=== PATIENT | male | born 1990 | race African-American/Black ===

== ENCOUNTER 2019-03-01 14:08 | Emergency (ER) | payer MEDICAID ==
[~2019-03-01] VITALS: Ht 180.3 cm; Wt 113.4 kg
[2019-03-01 14:52] VITALS: BP 124/68
--- NOTE | 2019-03-01 15:20 | Emergency Room Report ---
History of Present Illness General Chief Complaint: Upper Extremity Injury Source: Patient Present Illness HPI 28-year-old male with no significant past medical history here complaining of 2 days of pain and swelling right hand reports that he might have broken it. Reports that heavy object fell on his hand. Patient reports that has not taken any medication for pain however his sister comes later and reports that patient cannot take ibuprofen or Tylenol they do not work and needs something stronger. Patient refuses to get a shot of Toradol. Patient then refuses to take anything for pain until the results of x-ray are back. Sister keeps answering for patient. Drug-seeking behavior is noted however cures was clear. Denies tingling and numbness at this time. Denies all other injuries. Patient has full range of motion however obvious swelling no bony tenderness of fourth metacarpal bone noted on the right hand. No motor or sensory deficits noted. Radial pulse and ulnar pulse are intact Allergies: Coded Allergies: No Known Allergies (Unverified , 03/01/19) Patient History Past Medical History: see triage record Past Surgical History: unable to obtain Pertinent Family History: none Immunizations: UTD Reviewed Nursing Documentation: PMH: Agreed; PSxH: Agreed Nursing Documentation-PMH Past Medical History: No History, Except For Hx Asthma: Yes Review of Systems All Other Systems: negative except mentioned in HPI Physical Exam Vital Signs Date Time Temp Pulse Resp B/P (MAP) Pulse Ox O2 Delivery O2 Flow Rate FiO2 03/01/19 14:10 97.5 69 20 137/90 (106) 97 Room Air Sp02 EP Interpretation: reviewed, normal General Appearance: no apparent distress, alert, GCS 15, non-toxic Head: normocephalic, atraumatic Eyes: bilateral eye normal inspection, bilateral eye PERRL ENT: hearing grossly normal, normal pharynx, no angioedema, normal voice Neck: full range of motion, supple/symm/no masses Respiratory: chest non-tender, lungs clear, normal breath sounds, no rhonchi, speaking full sentences Cardiovascular #1: regular rate, rhythm, no murmur Cardiovascular #2: 2+ radial (R), 2+ radial (L) Gastrointestinal: normal bowel sounds, non tender, soft, non-distended, no guarding, no rebound Genitourinary: no CVA tenderness Musculoskeletal: back normal, tender - Right fourth metacarpal, swelling - Right fourth and fifth metacarpal Neurologic: alert, motor strength/tone normal, oriented x3, sensory intact, responsive, speech normal Psychiatric: judgement/insight normal, memory normal, mood/affect normal, no suicidal/homicidal ideation Skin: no rash Lymphatic: no adenopathy Procedures Splinting Splinting : Consent: Verbal Location: Right hand Hand-Made Type: plaster Splint: ulnar Pre-Proc Neuro Vasc Exam: normal Post-Proc Neuro Vasc Exam: normal Patient Tolerated: Well Complications: None Progress Sling applied Medical Decision Making PA Attestation All my diagnosis and treatment plans were reviewed ad discussed with my supervising physician Dr. Romo Diagnostic Impression: Primary Impression: Fracture of fourth metacarpal bone of right hand ER Course 28-year-old male with no significant past medical history here complaining of 2 days of pain and swelling right hand reports that he might have broken it. Reports that heavy object fell on his hand. Patient reports that has not taken any medication for pain however his sister comes later and reports that patient cannot take ibuprofen or Tylenol they do not work and needs something stronger. Patient refuses to get a shot of Toradol. Patient then refuses to take anything for pain until the results of x-ray are back. Sister keeps answering for patient. Drug-seeking behavior is noted however cures was clear. Denies tingling and numbness at this time. Denies all other injuries. Patient has full range of motion however obvious swelling no bony tenderness of fourth metacarpal bone noted on the right hand. No motor or sensory deficits noted. Radial pulse and ulnar pulse are intact Ddx considered but are not limited to: Hand sprain, hand sprain, hand fracture Vital signs: are WNL, pt. is afebrile H&PE are most consistent with : Displaced fracture of right fourth metacarpal bone ORDERS: Hand x-ray, very few pills of Tylenol 3, ibuprofen 800 ED INTERVENTIONS: Splint, Tylenol 3, Robaxin DISCHARGE: At this time pt. is stable for d/c to home. Will provide printed patient care instructions, and any necessary prescriptions. Care plan and follow up instructions have been discussed with the patient prior to discharge. Patient to follow-up with rare/endangered species specialist for casting and further assessment. I explained to patient that cannot write any more narcotics at this time patient to follow-up with pain management as well as rare/endangered species specialist. Keep splint on. I discussed the finding of x-ray with over the phone and confirmed that there is a displaced fracture of right fourth metacarpal bone. Patient did not agree to reducing the displaced fracture and want to follow-up with Ortho. Advised patient return to emergency room if worsening symptoms. Other X-Ray Diagnostic Results Other X-Ray Diagnostic Results : X-Ray ordered: Right hand # of Views/Limited Vs Complete: 3 View Indication: Pain EP Interpretation: Yes PA Xray: Interpretation reviewed, by supervising MD, and agrees with findings. Interpretation: no dislocation, other - Displaced fracture right fourth metacarpal bone Impression: Other - Displaced fracture right fourth metacarpal bone Electronically Signed by: Etienne Bella PA-C Last Vital Signs Date Time Temp Pulse Resp B/P (MAP) Pulse Ox O2 Delivery O2 Flow Rate FiO2 03/01/19 14:52 98.1 18 124/68 86 Room Air 03/01/19 14:10 69 Disposition: HOME, SELF-CARE Condition: Stable Scripts Ibuprofen (Ibu) 800 Mg Tablet 800 MG PO TID, #30 TAB Prov: Etienne Kearns 03/01/19 Acetaminophen With Codeine (T#3) (TYLENOL #3 TAB*) Y Tab 1 TAB ORAL Q8HR PRN for For Pain for 2 Days, #6 TAB 0 Refills Prov: Etienne Kearns 03/01/19 Referrals: NON PHYSICIAN (PCP) Patient Instructions: Metacarpal Fracture, [id number] Additional Instructions: Medication as directed, follow-up with your primary care provider, if worsening symptoms return to the emergency room. You need to follow-up with rare/endangered species specialist and only few numbers of controlled substance can be given to you by emergency room in one setting and you need to follow-up with pain management and rare/endangered species specialist and proper casting and further assessment to be done by rare/endangered species specialist. Eteinne Kearns Mar 01, 2019 15:20
[2019-03-01] MEDS ORDERED: IBU800 MG PO (15:22)
[2019-03-01] MEDS ORDERED: ACETAMINOPHEN-1 EAC1 ORAL (15:22)
--- NOTE | 2019-03-01 15:58 | Diagnostic Imaging Report ---
Indication: Trauma, pain Technique: 3 views right hand Comparison: none Findings: There is an oblique fracture of the proximal fourth metacarpal. This is posteriorly angulated and posteriorly displaced by about one half bone width. No other acute fractures. No dislocations. The joint spaces are preserved. There is dorsal soft tissue swelling Impression: Positive for fourth metacarpal fracture Findings discussed by phone with nurse practitioner Nishi in the emergency room at the time of interpretation
[2019-03-01] MEDS ORDERED: Methocarbamol 750mg tab ORAL ONE (16:00)
[2019-03-01] MEDS ORDERED: Tylenol #3 tab (300mg/30mg) ORAL ONE (16:00)
[2019-03-01 16:38] VITALS: BP 122/79
== END 2019-03-01 16:40 | disposition home or self-care (01) ==
LOC: EMR 14:49
DX: S62.304A Unspecified fracture of fourth metacarpal bone, right hand, initial encounter for closed fracture (principal); W20.8XXA Other cause of strike by thrown, projected or falling object, initial encounter; Y92.9 Unspecified place or not applicable; Z76.5 Malingerer [conscious simulation]
CPT/HCPCS: 29125; 73130; Z7502; 99283